=== PATIENT | female | born 1990 | race Caucasian/White ===

== ENCOUNTER 2017-01-03 00:06 | Inpatient (IN) | payer BC ==
[2017-01-03] MEDS ORDERED: Lactated Ringers 1,000 ML IV ONE (05:14)
[2017-01-03] MEDS ORDERED: PITOCIN 30 UNITS/ LR 500 ML 500 ML IV ONE (05:14)
[2017-01-03] MEDS ORDERED: XYLOCAINE 1% HCL 20 ML MDV IJ PRN (05:16)
[2017-01-03] MEDS ORDERED: STADOL 2 MG IV PRN (05:16)
[2017-01-03] MEDS ORDERED: Zofran 4 MG/2 ML VIAL IV PRN (05:16)
[2017-01-03] MEDS ORDERED: TYLENOL EXTRA STRENGTH 500 MG PO PRN ×2 (05:16→14:13)
[2017-01-03] MEDS: Lactated Ringers 1,000 ML IV SCH ×2 (05:19→13:27)
[2017-01-03] MEDS ORDERED: PITOCIN 30 UNITS/ LR 500 ML 500 ML IV SCH (05:30)
[2017-01-03 06:44] LABS: BASOPHIL % 0.1 % (0.0-0.4); Eosinophil % 0.7 % (0.00-5.0); Granulocytes % 76.1 % (36.0-66.0); Lymphocytes % 16.7 % (24.0-44.0); Mean Cell Volume 90.4 fl (78-100); Mean Corpuscular Hemoglobin 30.7 pg (26-32); Mean Platelet Volume 12.3 fl (6-9.5); Monocytes % 6.4 % (0.0-12.0); Platelet Count 188 K/mm3 (150-450); Red Blood Count 4.17 M/mm3 (4.1-5.4); Red Cell Distribution Width 13.7 % (11.5-14.0); White Blood Count 10.5 K/mm3 (4.0-10.5)
[2017-01-03] MEDS ORDERED: Anucort-HC SUPPOSITORY PR PRN (14:13)
[2017-01-03] MEDS ORDERED: Adacel Vial IM ONE (14:13)
[2017-01-03] MEDS ORDERED: Dermoplast Spray TP PRN (14:13)
[2017-01-03] MEDS ORDERED: NORCO 5/325 MG PO PRN (14:13)
[2017-01-03] MEDS ORDERED: LANSINOH 40 GM TOP PRN (14:13)
[2017-01-03] MEDS ORDERED: Ambien 10 MG PO PRN (14:13)
[2017-01-03] MEDS ORDERED: TUCKS TP PRN (14:13)
[2017-01-03] MEDS ORDERED: MOTRIN 400 MG PO PRN (14:13)
[2017-01-03] MEDS ORDERED: Restoril 15 MG PO PRN (14:13)
[2017-01-03] MEDS ORDERED: Dulcolax 10 MG SUPP PR PRN (14:13)
[2017-01-03] MEDS ORDERED: CORTISONE 1% CREAM TP PRN (14:13)
[2017-01-03] MEDS: Colace 100 MG PO SCH (21:12)
[2017-01-04 06:39] LABS: BASOPHIL % 0.1 % (0.0-0.4); Eosinophil % 0.3 % (0.00-5.0); Granulocytes % 79.4 % (36.0-66.0); Lymphocytes % 12.8 % (24.0-44.0); Mean Platelet Volume 12.1 fl (6-9.5); Monocytes % 7.4 % (0.0-12.0); Platelet Count 181 K/mm3 (150-450); Red Blood Count 3.26 M/mm3 (4.1-5.4); Red Cell Distribution Width 13.7 % (11.5-14.0); White Blood Count 17.4 K/mm3 (4.0-10.5)
[2017-01-04 06:43] LABS: Mean Corpuscular Hemoglobin 31.2 pg (26-32)
[2017-01-04] MEDS: FERREX 150 PO SCH (10:06)
[2017-01-04] MEDS: Colace 100 MG PO SCH ×2 (10:06→21:29)
--- NOTE | 2017-01-05 08:11 | PCM.DS ---
Discharge Summary Date of Admission: 01/03/17 05:04 Admitting Physician: TREASURE MONTELONGO Primary Care Provider: TREASURE MONTELONGO Allergies Allergies No Known Drug Allergies Allergy (Unverified 01/03/17 01:13) Hospital Summary - Hospital Course Hospital Course: delivered viable baby girl via vaginal delivery (vacuum assist). Second degree vaginal laceration. Bleeding is decreased. Has only required ibuprofen x 1 for pain. - Vitals & Intake/Output Vital Signs: Vital Signs Temperature 97.5 F 01/05/17 02:00 Pulse Rate 104 H 01/05/17 02:00 Respiratory Rate 18 01/05/17 02:00 Blood Pressure 124/70 01/05/17 02:00 O2 Sat by Pulse Oximetry Intake & Output: Intake & Output 01/02/17 01/03/17 01/04/17 01/05/17 11:59 11:59 11:59 11:59 Intake Total 3685 2350 Balance 3685 2350 Weight 82.554 kg - Lab Result Diagrams: 01/04/17 05:20 Discharge Exam General Appearance: no apparent distress, alert Neurologic Exam: oriented x 3, cooperative Skin Exam: normal color, warm, dry Eye Exam: eyes nml inspection Ears, Nose, Throat Exam: moist mucous membranes Respiratory Exam: normal breath sounds, lungs clear, No crackles/rales, No rhonchi, No wheezing Cardiovascular Exam: regular rate/rhythm, normal heart sounds, No murmur Gastrointestinal/Abdomen Exam: soft, other (fundus firm under umbilicus), No distention Extremity Exam: No pedal edema, No swelling Final Diagnosis/Problem List - Final Discharge Diagnosis/Problem (1) Vaginal delivery Current Visit: Yes Status: Acute Assessment & Plan: Doing well post . One mildly increased BP since delivery - advise if any GEIGER, visual change, increase in edema, or other worrisome sx report to Dr. Montelongo or to [facility] immediately. Will get her BP checked in 2 d at PP check. F/u with Dr. Montelongo in 4-6 wks. - Discharge Disposition: Home, Self-Care Condition: Stable Prescriptions: Continue Vits W-Ca,Fe,FA(<1Mg) [] 1 tab PO DAILY Follow up with: TREASURE MONTELONGO MD [Primary Care Provider] - 1 Week
[2017-01-05 08:55] VITALS: BP 122/77; PULSE 117
[2017-01-05] MEDS: Colace 100 MG PO SCH (11:03)
[2017-01-05] MEDS: FERREX 150 PO SCH (11:03)
== END 2017-01-05 14:10 | disposition home or self-care (01) | DRG 775 ==
LOC: OB 00:06 → OBSVTOIN 05:04 → OB 05:04 → OBSVTOIN 05:10 → INTOOBSV 05:10
PROVIDERS: ADMIT Family Medicine; ATTEND Family Medicine
PROC: 10D07Z6 Extraction of Products of Conception, Vacuum, Via Natural or Artificial Opening (ICD-10-PCS; principal; 2017-01-03)
PROC: 0KQM0ZZ Repair Perineum Muscle, Open Approach (ICD-10-PCS; 2017-01-03)
DX: O70.1 Second degree perineal laceration during delivery (principal); Z37.0 Single live birth; O66.5 Attempted application of vacuum extractor and forceps; Z3A.40 40 weeks gestation of pregnancy
CPT/HCPCS: 36415; 80307; 85025; 90471; 90715; G0378; J2590; A9270-GY

== ENCOUNTER 2020-06-19 01:55 | Inpatient (IN) | payer OTHER ==
[2020-06-19] MEDS: Lactated Ringers 1,000 ML IV SCH ×2 (05:30→07:46)
[2020-06-19 05:49] LABS: Hematocrit 38.7 % (35-47); Hemoglobin 12.7 gm/dl (12.0-16.0); Mean Cell Volume 91.3 fl (78-100); Mean Corpuscular Hgb Concent. 32.8 g/dl (32-36); Mean Platelet Volume 11.3 fl (7.5-11.0); Platelet Count 198 K/mm3 (150-450); Red Blood Count 4.24 M/mm3 (4.1-5.4); Red Cell Distribution Width 13.8 % (11.5-14.0)
[2020-06-19] MEDS ORDERED: BRETHINE 1 MG/ML SQ PRN (06:00)
[2020-06-19] MEDS ORDERED: PITOCIN 30 UNITS/ LR 500 ML 30 UNITS/500 ML IV.SOLN. IV SCH ×2 (06:00→08:00)
[2020-06-19] MEDS ORDERED: XYLOCAINE 1% HCL 20 ML MDV IJ PRN (06:00)
[2020-06-19 06:27] LABS: Amphetamine,Urine NEGATIVE (NEGATIVE); Barbiturate,Urine NEGATIVE (NEGATIVE); Benzodiazepine,Urine NEGATIVE (NEGATIVE); Cocaine,Urine NEGATIVE (NEGATIVE); Methadone,Urine NEGATIVE (NEGATIVE); Opiate,Urine NEGATIVE (NEGATIVE); PCP,Urine NEGATIVE (NEGATIVE); THC,Urine NEGATIVE (NEGATIVE)
[2020-06-19] MEDS ORDERED: Zofran 4 MG/2 ML VIAL IV PRN (08:00)
[2020-06-19] MEDS ORDERED: TYLENOL EXTRA STRENGTH 500 MG PO PRN (08:00)
[2020-06-19 08:41] LABS: Appearance CLOUDY (CLEAR); Bacteria RARE /HPF (NEGATIVE); Bilirubin NEGATIVE (NEGATIVE); Blood NEGATIVE Ery/ul (0-5); Epithelial Cells FEW /HPF (FEW); Glucose NEGATIVE (NEGATIVE); Ketones NEGATIVE (NEGATIVE); Leukocyte Esterase TRACE (NEGATIVE); Mucus SLIGHT /HPF (NEGATIVE); Nitrite NEGATIVE (NEGATIVE); Protein,Urine Dip 30 (Negative); Specific Gravity 1.021 (1.005-1.025); Urobilinogen NEGATIVE mg/dL (0-1)
[2020-06-19] MEDS ORDERED: NORCO 5/325 MG PO PRN (11:44)
[2020-06-19] MEDS ORDERED: Anucort-HC SUPPOSITORY PR PRN (11:44)
[2020-06-19] MEDS ORDERED: LANSINOH 40 GM TOP PRN (11:44)
[2020-06-19] MEDS ORDERED: Dulcolax 10 MG SUPP PR PRN (11:44)
[2020-06-19] MEDS ORDERED: Dermoplast Spray TP PRN (11:44)
[2020-06-19] MEDS ORDERED: CORTISONE 1% CREAM TP PRN (11:44)
[2020-06-19] MEDS ORDERED: TUCKS TP PRN (11:44)
[2020-06-19] MEDS ORDERED: Mylicon 80MG PO PRN (11:44)
[2020-06-19] MEDS: MOTRIN 400 MG PO PRN ×2 (13:08→23:15)
[2020-06-19 15:35] LABS: ATYPICAL LYMPHS 1 %; BAND 1 % (0.0-2.0); Eosinophil 1 % (0.00-3.0); Lymphocytes 20 % (24-44); Monocyte 2 % (0.0-12.0); Neutrophils 75 % (36.0-66.0); Platelet Estimate NORMAL (NORMAL); Total Cells Counted 100
[2020-06-19] MEDS: Colace 100 MG PO SCH (21:21)
[2020-06-19] MEDS ORDERED: Adacel Vial IM ONE (23:18)
[2020-06-20 04:58] LABS: Absolute Neutrophil Ct (ANC) 11.29 (1.4-6.9); BASOPHIL % 0.1 % (0.0-0.4); Basophil (Absolute #) 0.02 (0-0.4); Eosinophil % 0.8 % (0.00-5.0); Eosinophil (Absolute #) 0.12 (0-0.5); Hemoglobin 10.9 gm/dl (12.0-16.0); Lymphocyte (Absolute #) 2.01 (1.0-4.6); Mean Cell Volume 93.7 fl (78-100); Mean Corpuscular Hgb Concent. 32.1 g/dl (32-36); Mean Platelet Volume 11.7 fl (7.5-11.0); Monocyte (Absolute #) 0.96 (0.0-1.3); Monocytes % 6.7 % (0.0-12.0); Neutrophil % 78.4 % (36.0-66.0); Platelet Count 174 K/mm3 (150-450); Red Blood Count 3.63 M/mm3 (4.1-5.4); White Blood Count 14.4 K/mm3 (4.0-10.5)
[2020-06-20] MEDS: MOTRIN 400 MG PO PRN (06:49)
[2020-06-20] MEDS ORDERED: Adacel Vial IM ONE (10:00)
[2020-06-20] MEDS ORDERED: FERREX 150 PO SCH (10:00)
[2020-06-20] MEDS: Colace 100 MG PO SCH ×2 (11:59→21:52)
[2020-06-21 02:50] VITALS: O2SAT 96
--- NOTE | 2020-06-21 09:34 | PCM.DS ---
Discharge Summary Date of Admission: 06/19/20 07:43 Admitting Physician: TREASURE MONTELONGO Primary Care Provider: TREASURE MONTELONGO Allergies Allergies No Known Drug Allergies Allergy (Verified 06/19/20 05:34) Hospital Summary - Hospital Course Hospital Course: Pt is 30 yo who delivered vaginally at term with Dr. Montelongo (for full details, see his delivery note). She is not having heavy bleeding, no dizziness with walking. Tolerating po. Ready to discharge home today. - Vitals & Intake/Output Vital Signs: Vital Signs Temperature 97.7 F 06/21/20 02:00 Pulse Rate 90 06/21/20 02:00 Respiratory Rate 18 06/21/20 02:00 Blood Pressure 111/63 06/21/20 02:00 O2 Sat by Pulse Oximetry 96 06/21/20 02:00 Intake & Output: Intake & Output 06/18/20 06/19/20 06/20/20 06/21/20 11:59 11:59 11:59 11:59 Intake Total 3798 950 Balance 3798 950 Weight 90.718 kg - Lab Result Diagrams: 06/20/20 04:10 Lab Results-Last 24 Hrs: Lab Results-Last 24 Hours 06/19/20 Range/Units 05:45 Hep Bs Antigen Negative (Negative) Discharge Exam General Appearance: no apparent distress, alert Neurologic Exam: oriented x 3, cooperative Eye Exam: eyes nml inspection Ears, Nose, Throat Exam: moist mucous membranes Neck Exam: normal inspection Respiratory Exam: normal breath sounds, lungs clear, No crackles/rales, No rhonchi, No wheezing Cardiovascular Exam: regular rate/rhythm, normal heart sounds, No murmur Gastrointestinal/Abdomen Exam: soft, normal bowel sounds, other (fundus firm under umbilicus), No tenderness, No guarding, No rebound Back Exam: normal inspection, No rash Extremity Exam: No pedal edema, No swelling Skin Exam: normal color, warm, dry, No rash Final Diagnosis/Problem List - Final Discharge Diagnosis/Problem (1) Vaginal delivery Current Visit: No Status: Acute Assessment & Plan: Doing great, , home with baby today. Code(s): O80 - ENCOUNTER FOR FULL-TERM UNCOMPLICATED DELIVERY - Discharge Disposition: Home, Self-Care Condition: Good Prescriptions: New Ibuprofen 600 mg PO TID PRN #35 tablet PRN Reason: Pain Continue Vits W-Ca,Fe,FA(<1Mg) [] 1 tab PO DAILY Ferrous Sulfate [Iron] 325 mg PO DAILY Follow up with: TREASURE MONTELONGO MD [Primary Care Provider] -
[2020-06-21 10:45] VITALS: BP 130/76; PULSE 72
== END 2020-06-21 15:00 | disposition home or self-care (01) | DRG 807 ==
LOC: OB 04:52 → OBSVTOIN 07:43 → OB 07:43
PROVIDERS: ADMIT Family Medicine; ATTEND Family Medicine
PROC: 10E0XZZ Delivery of Products of Conception, External Approach (ICD-10-PCS; principal; 2020-06-19)
DX: O69.89X0 Labor and delivery complicated by other cord complications, not applicable or unspecified (principal); Z37.0 Single live birth; Z3A.40 40 weeks gestation of pregnancy
CPT/HCPCS: 36415; 80307; 81001; 85025; 87340; 90471; 90715; G0378; J2590; A9270-GY